=== PATIENT | male | born 1995 | race Caucasian/White ===

== ENCOUNTER 2016-07-11 16:35 | Emergency (ER) | payer OTHER ==
[~2016-07-11] VITALS: Ht 185.4 cm; Wt 108.9 kg
[~2016-07-11 16:35] MED LIST: CIPRO 500MG (E500 MG PO; ZOFRAN ODT4 MG PO
--- NOTE | 2016-07-11 16:45 | ED GENERAL ADULT ---
History of Present Illness General Chief Complaint: Chest Pain Stated Complaint: BIBA CHEST ?PULLING/PAIN Source: patient Exam Limitations: no limitations Vital Signs & Intake/Output Vital Signs & Intake/Output Vital Signs Date Time Temp Pulse Resp B/P B/P Pulse O2 O2 Flow FiO2 Mean Ox Delivery Rate 07/11 1644 Room Air 07/11 1642 98.0 60 18 130/77 99 Room Air Allergies Coded Allergies: NO KNOWN ALLERGIES (10/01/12) Reconcile Medications No Known Home Medications Triage Note: NIC FOR RECURRENT CHEST PAIN. WAS SEEN [facility]ESTERDAY FOR SAME COMPLAINT. TODAY HAD RECURRENT PAIN THAT FEELS LIKE A PULLING SENSATION IN LEFT CHEST. DENIES SOB, DIAPHORESIS OR DIZZINESS. PT AWAKE, ALERT, ORIENTED. IN NO OVERT DISTRESS. Triage Nurses Notes Reviewed? yes Onset: Abrupt Duration: day(s): Timing: recent history HPI: 07/11/16 5:35 pm 21-year-old man presents to the emergency department complaining of chest pain. According to the patient he was in his usual state of health until the past week when he is getting intermittent episodes of left sided pulling type chest pain. He says that the pain is over the left anterior hemithorax. He denies shortness of breath, fever, cough, or other complaints. The onset of the symptoms has been abrupt, the duration has been the past 7 days, the severity is significant; as his symptoms required him to come to the emergency department for care. He says he was seen in urgent care center [facility] approximately 24 hours prior to arrival and had a negative EKG and chest x-ray Past History Travel History Traveled to [place] past 21 day No Medical History Any Pertinent Medical History? see below for history Neurological: NONE EENT: NONE Cardiovascular: NONE Respiratory: NONE Gastrointestinal: NONE Hepatic: NONE Renal: NONE Musculoskeletal: NONE Psychiatric: NONE Endocrine: NONE Blood Disorders: NONE Cancer(s): NONE Surgical History Surgical History: none Psychosocial History Who do you live with Mother What is your primary language Grenadian Tobacco Use: Never used ETOH Use: denies use Illicit Drug Use: TRIED MARIJUANA ONCE Family History Hx Contributory? No Review of Systems Review of Systems Constitutional: Denies: fever. EENTM: Reports: no symptoms. Respiratory: Denies: short of breath. Cardiovascular: Reports: chest pain. GI: Denies: abdominal pain. Genitourinary: Reports: no symptoms. Musculoskeletal: Reports: no symptoms. Skin: Reports: no symptoms (`). Neurological/Psychological: Reports: no symptoms. Hematologic/Endocrine: Reports: no symptoms. Immunologic/Allergic: Reports: no symptoms. Physical Exam Physical Exam General Appearance: well developed/nourished, alert, awake, anxious, mild distress Head: atraumatic, normal appearance Eyes: Bilateral: normal appearance, PERRL, EOMI. Ears, Nose, Throat: normal pharynx, normal ENT inspection Neck: normal inspection, supple Respiratory: normal breath sounds, no respiratory distress, left chest wall tenderness Cardiovascular: regular rate/rhythm Peripheral Pulses: 4+ radial (R), 4+ radial (L) Gastrointestinal: soft, non-tender Back: normal range of motion Extremities: normal range of motion, no edema Neurologic/Psych: no motor/sensory deficits, awake, alert, oriented x 3 Skin: intact, normal color, warm/dry Core Measures ACS in differential dx? No CVA/TIA Diagnosis: No Severe Sepsis Present: No Septic Shock Present: No Progress Differential Diagnoses I considered the following diagnoses in my evaluation of the patient: [ Aortic dissection. Pulmonary embolism, esophageal rupture, pneumothorax, acute coronary syndrome, costochondritis, myocarditis, pericarditis,] Plan of Care: Orders Procedure Date/time Status TROPONIN LEVEL 07/11 1658 Complete Add-on Test (ER Only) 07/11 1654 Active PROTHROMBIN TIME 07/11 1648 Complete COMPREHENSIVE METABOLIC PANEL 07/11 1648 Complete CBC WITHOUT DIFFERENTIAL 07/11 1648 Complete EKG 07/11 1637 Active Laboratory Tests 07/11/16 1658: Anion Gap 12, Estimated GFR > 60, BUN/Creatinine Ratio 10.0, Glucose 95, Calcium 9.6, Total Bilirubin 0.7, AST 34, ALT 87 H, Alkaline Phosphatase 73, Troponin I < 0.01, Total Protein 7.5, Albumin 4.6, Globulin 2.9, Albumin/Globulin Ratio 1.6 , PT 11.7, INR 1.12, CBC w Diff NO MAN DIFF REQ, RBC 5.21, MCV 81.9, MCH 27.9, RDW 12.6, MPV 8.4, Gran % 64.4, Lymphocytes % 27.0, Monocytes % 8.1, Eosinophils % 0.1, Basophils % 0.4, Absolute Granulocytes 3.6, Absolute Lymphocytes 1.5, Absolute Monocytes 0.5, Absolute Eosinophils 0, Absolute Basophils 0, PUBS MCHC 34.1 Initial ED EKG: NSR, nonspecific interventricular conduction delay Departure Departure Disposition: STILL A PATIENT Condition: Stable Clinical Impression Primary Impression: Costochondral chest pain Referrals: ELEANOR CAMPA,FLYNN Winter Departure Forms: Customer Survey General Discharge Information Prescriptions: Current Visit Scripts No Known Home Medications Comments 07/11/16 6 pm The patient's EKG is unremarkable. Chest x-ray and labs are unremarkable. We' ll discharge on ibuprofen. He will follow-up with the residence counselor for consideration of echocardiogram and additional testing. Critical Care Note Critical Care Note Critical Care Time: non-applicable Comments: PATIENT: REY PETERS PRESENT AGE: 21 PATIENT ACCOUNT NO: [id number] : 94 LOCATION: [facility] ORDERING PHYSICIAN: KAMILA DENNISON DO SERVICE DATE: 07/11/16 EXAM TYPE: RAD - XRY-PORTABLE CHEST XRAY EXAMINATION: XR PORTABLE CHEST CLINICAL INFORMATION: Chest pain. Evaluate for pneumothorax. COMPARISON: None. TECHNIQUE: Portable frontal view of the chest was obtained. FINDINGS: The lungs are well-expanded and clear without focal airspace consolidation. No pleural effusions or pneumothoraces are identified. Cardiomediastinal contours are within normal limits. Soft tissues are unremarkable. No acute osseous abnormality is identified. IMPRESSION: No acute pulmonary process. DICTATED BY: SUDHIR ARANGO MD DATE/TIME DICTATED:07/11/161712 CORN HUSKER:SHANIQUA DATE/TIME TRANSCRIBED:07/11/161712 CONFIDENTIAL, DO NOT COPY WITHOUT APPROPRIATE AUTHORIZATION. <Electronically signed in Other Vendor System> SIGNED BY: SUDHIR ARANGO MD 07/11/161716
[2016-07-11 17:09] LABS: ABSOLUTE BASOPHIL COUNT 0 /CUMM (0.0-0.2); ABSOLUTE EOSINOPHIL COUNT 0 /CUMM (0.0-0.7); ABSOLUTE GRANULOCYTE CT 3.6 /CUMM (1.4-6.5); ABSOLUTE LYMPH COUNT 1.5 /CUMM (1.2-3.4); ABSOLUTE MONOCYTE COUNT 0.5 /CUMM (0.10-0.60); BASOPHIL % 0.4 % (0.0-2.0); EOSINOPHIL % 0.1 % (0-5); GRANULOCYTE % 64.4 % (42.2-75.2); HEMATOCRIT 42.7 % (42-52); MEAN CORPUSCULAR HGB 27.9 PG (27.0-31.0); MEAN CORPUSCULAR HGB CONC 34.1 G/DL (33.0-37.0); MEAN CORPUSCULAR VOLUME 81.9 FL (80.0-94.0); MEAN PLATELET VOLUME 8.4 FL (7.4-10.4); PLATELET COUNT 237 /CUMM (130-400); RBC DISTRIBUTION WIDTH 12.6 % (11.5-14.5); RED BLOOD CELL CT 5.21 /CUMM (4.70-6.10); WHITE BLOOD CELL COUNT 5.6 /CUMM (4.8-10.8)
[2016-07-11 17:14] LABS: PT 11.7 SEC (9.4-12.5)
--- NOTE | 2016-07-11 17:17 | RADIOLOGY REPORT ---
EXAMINATION: XR PORTABLE CHEST CLINICAL INFORMATION: Chest pain. Evaluate for pneumothorax. COMPARISON: None. TECHNIQUE: Portable frontal view of the chest was obtained. FINDINGS: The lungs are well-expanded and clear without focal airspace consolidation. No pleural effusions or pneumothoraces are identified. Cardiomediastinal contours are within normal limits. Soft tissues are unremarkable. No acute osseous abnormality is identified. IMPRESSION: No acute pulmonary process.
[2016-07-11] MEDS ORDERED: IBUPROFEN400 M1 PO (18:02)
[2016-07-11 18:16] VITALS: BP 128/78
== END 2016-07-11 18:17 ==
LOC: ERH 16:35
PROVIDERS: Emergency Medicine
DX: R07.1 Chest pain on breathing (principal)
CPT/HCPCS: 93005; 93010